=== PATIENT | male | born 1995 | race Caucasian/White ===

== ENCOUNTER 2017-07-30 17:49 | Emergency (ER) | payer OTHER ==
[2017-07-30 18:48] LABS: INFLUENZA A AMPLIFICATION NEGATIVE (NEGATIVE); INFLUENZA B AMPLIFICATION NEGATIVE (NEGATIVE)
[2017-07-30] MEDS ORDERED: ONDANSETRON 4 MG ORAL DISINTEGRATING TAB (S0181) As Ordered (19:26)
[2017-07-30] MEDS: ONDANSETRON 4 MG ORAL DISINTEGRATING TAB (S0181) PO (19:35)
== END 2017-07-30 19:40 | disposition home or self-care (01) ==
LOC: M ED 17:49
DX: B34.9 Viral infection, unspecified (principal)
CPT/HCPCS: 87502

== ENCOUNTER 2017-08-29 15:14 | Emergency (ER) | payer OTHER ==
[2017-08-29] MEDS: FLUORESCEIN OPHTH 1 MG STRIP OD (15:59)
[2017-08-29] MEDS: TETRACAINE 0.5% OPHTH SOLN 4ML OD (15:59)
== END 2017-08-29 17:10 | disposition home or self-care (01) ==
LOC: M ED 15:14
DX: S05.01XA Injury of conjunctiva and corneal abrasion without foreign body, right eye, initial encounter (principal); W20.8XXA Other cause of strike by thrown, projected or falling object, initial encounter; Y92.89 Other specified places as the place of occurrence of the external cause; F17.210 Nicotine dependence, cigarettes, uncomplicated
CPT/HCPCS: 99283